=== PATIENT | male | born 1955 | race Caucasian/White ===

== ENCOUNTER 2019-08-08 06:32 | Day surgery (SDC) | payer MEDICARE ==
[~2019-08-08] VITALS: Ht 172.7 cm; Wt 74.4 kg
[~2019-08-08 06:32] MED LIST: ASPIRIN EC81 M1 PO; LIPITOR40 MG PO; XANAX1 MG PO; ZESTRIL10 MG PO
[2019-08-08 07:12] LABS: BASOPHILS 0.4 % (0-2); EOSINOPHILS 4.3 % (0-7); HEMATOCRIT 44.6 % (42.0-54.0); HEMOGLOBIN 14.9 g/dL (13.5-17.5); IMMATURE GRANULOCYTES 0.2 % (0-5); LYMPHOCYTES 27.5 % (15-50); MCH 29.7 pg (26.0-34.0); MCHC 33.4 g/dL (31.0-37.0); MCV 88.8 fL (80.0-100.0); MEAN PLATELET VOLUME 9.4 fL (7.4-10.4); MONOCYTES 14.5 % (2-11); NEUTROPHILS 53.1 % (40-80); PLATELET COUNT 312 10x3/uL (130-400); RBC 5.02 10x6/uL (4.20-6.10); RDW 13.4 % (11.5-14.5); WBC 5.6 10x3/uL (4.8-10.8)
[2019-08-08 07:21] LABS: ANION GAP 9.2 mmol/L (8-16); CALCIUM 9.2 mg/dL (8.5-10.1); CARBON DIOXIDE 30.4 mmol/L (21.0-32.0); CREATININE - SERUM 1.2 mg/dL (0.6-1.3); POTASSIUM - SERUM 4.6 mmol/L (3.5-5.1)
[2019-08-08 07:33] VITALS: BP 125/77; Ht 172.7 cm; Wt 74.4 kg
[2019-08-08] MEDS ORDERED: HYDROCODON-ACE1 EAC7 PO (10:04)
--- NOTE | 2019-08-08 13:08 | NUR ---
1150-AMBULATED TO RESTROOM.UNABLE TO VOID. VSS.PAIN 5/10. NO DISTRESS.STERI STRIPS CDI. CL IN EASY REACH. FLUIDS ENCOURAGED AND AT BEDSIDE. IV AT KVO. CL IN EASY REACH. SPOUSE AT BEDSIDE
--- NOTE | 2019-08-08 16:22 | NUR ---
1330-ATTEMPTED TO VOID FOR SECOND TIME WITHOUT SUCCESS.
--- NOTE | 2019-08-08 16:25 | NUR ---
1445-PT UP TO RESTROOM AND ACCIDENTLY REMOVED IV WITH CATH INTACT,DISPOSED INTO SHARPS,COVERED WITH GUAZE,SECURED WITH MEDIPORE TAPE. UNABLE TO URINATE.
--- NOTE | 2019-08-08 16:26 | NUR ---
1540-PER BLADDER SCAN 244ML OF URINE IN BLADDER. ENCOURAGED MORE WATER INTAKE.
--- NOTE | 2019-08-08 17:06 | NUR ---
3551-TELEPHONE ORDER FROM . ADMINISTER 20MG LASIX X ONE DOSE AND FLOMAX 0.4 MG TABLET X ONE DOSE THEN DISCHARGE HOME. IF PT DOES NOT URINATE THROUGHTOUT NIGHT INSTRUCT TO RETURN TO ER FOR [facility] CATH.
--- NOTE | 2019-08-08 18:25 | NUR ---
1726-aDMINISTERED [id number] 1 BY MOUTH AND FLOMAX 0.4MG 1 BY MOUTH PER MD ORDERS.
--- NOTE | 2019-08-08 18:26 | NUR ---
175-ESCORTED OUT VIA W/C WITH SPOUSE AWAITING TO DRIVE HOME
--- NOTE | 2019-08-08 18:26 | NUR ---
1735-REVIEWED POST OP INSTRUCTIONS AND FOLLOW UP APPOINTMENT. PT UNDERSTANDS IF UNABLE TO VOID THROOUGHOUT NIGHT WITH PAIN TO RETURN TO ER.
== END 2019-08-08 17:55 | disposition home or self-care (01) ==
LOC: D.OPS 06:32 → D.PAN 09:00 → D.OPS 09:00
PROVIDERS: Anesthesiology; ATTEND Surgery
DX: K43.6 Other and unspecified ventral hernia with obstruction, without gangrene (principal)